=== PATIENT | female | born 1990 | race Caucasian/White ===

== ENCOUNTER 2018-01-06 20:23 | Inpatient (IN) | payer OTHER ==
[~2018-01-06] VITALS: Ht 154.9 cm; Wt 63.5 kg
== END 2018-01-08 13:40 | disposition home or self-care (01) | DRG 343 ==
LOC: ER 20:23 → SEC-K 01-07 00:21 → SURG 01-07 02:49
PROVIDERS: Surgery
PROC: 0DTJ4ZZ Resection of Appendix, Percutaneous Endoscopic Approach (ICD-10-PCS; principal; 2018-01-07 07:00)
DX: K35.89 Other acute appendicitis (principal)